=== PATIENT | female | born 1965 | race Caucasian/White ===

== ENCOUNTER → 2016-12-25 | Outpatient (CLI) | payer OTHER ==
[~2016-12-25] MED LIST: PREDNISONE5 MG PO; VITAMIN D2000 INTUN PO
== END | disposition home or self-care (01) ==
LOC: NUC 06:49
DX: R10.13 Epigastric pain (principal); K51.00 Ulcerative (chronic) pancolitis without complications; K22.70 Barrett's esophagus without dysplasia
CPT/HCPCS: 78227; A9537; J2805

== ENCOUNTER 2017-05-29 12:49 | Emergency (ER) | payer OTHER ==
[~2017-05-29] VITALS: Ht 167.6 cm; Wt 96.2 kg
[2017-05-29] MEDS ORDERED: NAPROSYN500 MG PO (14:14)
[2017-05-29] MEDS ORDERED: ZOFRAN ODT4 MG PO (14:14)
[2017-05-29] MEDS ORDERED: FLEXERIL10 MG PO (14:15)
[2017-05-29 14:26] VITALS: BP 153/94
== END 2017-05-29 14:27 | disposition home or self-care (01) ==
LOC: EME 12:49
DX: S46.912A Strain of unspecified muscle, fascia and tendon at shoulder and upper arm level, left arm, initial encounter (principal); V19.9XXA Pedal cyclist (driver) (passenger) injured in unspecified traffic accident, initial encounter; Y93.55 Activity, bike riding; S06.0X0A Concussion without loss of consciousness, initial encounter; W18.2XXA Fall in (into) shower or empty bathtub, initial encounter; Y93.E1 Activity, personal bathing and showering
CPT/HCPCS: 73060; 99281; 99283